=== PATIENT | female | born 1990 | race Two or more races ===

== ENCOUNTER 2019-05-10 00:06 | Emergency (ER) | payer OTHER ==
[~2019-05-10] VITALS: Ht 157.5 cm; Wt 95.3 kg
== END 2019-05-10 03:47 | disposition home or self-care (01) ==
LOC: ER 00:06
DX: J06.9 Acute upper respiratory infection, unspecified (principal)

== ENCOUNTER 2021-04-02 21:41 | Emergency (ER) | payer OTHER ==
[~2021-04-02] VITALS: Ht 157.5 cm; Wt 88.0 kg
[2021-04-03] MEDS ORDERED: ACETAMINOPHEN650 M2 PO (01:26)
== END 2021-04-03 01:37 | disposition home or self-care (01) ==
LOC: ER 21:41
DX: O46.8X1 Other antepartum hemorrhage, first trimester (principal); Z3A.01 Less than 8 weeks gestation of pregnancy

== ENCOUNTER → 2021-04-29 | Emergency (ER) | payer OTHER ==
[~2021-04-29] MED LIST: ACETAMINOPHEN650 M2 PO
== END | disposition left against medical advice (07) ==
LOC: ER 17:40
DX: Z53.21 Procedure and treatment not carried out due to patient leaving prior to being seen by health care provider (principal)

== ENCOUNTER 2021-07-26 07:43 | Outpatient (CLI) | payer OTHER ==
[2021-07-26] MEDS ORDERED: PRENATAL CAPLE1 EAC1 (08:48)
[2021-07-26] MEDS ORDERED: LEVOTHYROXINE13 MCG (08:48)
== END 2021-07-27 09:36 | disposition home or self-care (01) ==
LOC: OBS/DEL 07:43
PROVIDERS: ATTEND Obstetrics & Gynecology
DX: O99.891 Other specified diseases and conditions complicating pregnancy (principal); Z3A.21 21 weeks gestation of pregnancy; R10.2 Pelvic and perineal pain; Z20.822 Contact with and (suspected) exposure to COVID-19

== ENCOUNTER 2021-11-29 09:57 | Inpatient (IN) | payer OTHER ==
[~2021-11-29] VITALS: Ht 157.5 cm; Wt 114.3 kg
[~2021-11-29 09:57] MED LIST changes: +LEVOTHYROXINE13 MCG; +PRENATAL CAPLE1 EAC1
[2021-11-29] MEDS ORDERED: FOLIC ACID20 MG (11:07)
[2021-11-30] MEDS ORDERED: SYNTHROID50 MCG (08:31)
== END 2021-12-02 13:55 | disposition home or self-care (01) | DRG 807 ==
LOC: LDR 09:57 → OB/GYN 11-30 13:32
PROVIDERS: ADMIT Obstetrics & Gynecology; ATTEND Obstetrics & Gynecology
PROC: 4A1HXCZ Monitoring of Products of Conception, Cardiac Rate, External Approach (ICD-10-PCS; 2021-11-29)
PROC: 10E0XZZ Delivery of Products of Conception, External Approach (ICD-10-PCS; principal; 2021-11-30)
PROC: 0KQM0ZZ Repair Perineum Muscle, Open Approach (ICD-10-PCS; 2021-11-30)
DX: O70.1 Second degree perineal laceration during delivery (principal); Z37.0 Single live birth; Z3A.39 39 weeks gestation of pregnancy; Z20.822 Contact with and (suspected) exposure to COVID-19

== ENCOUNTER 2023-02-17 15:44 | Emergency (ER) | payer OTHER ==
[~2023-02-17] VITALS: Ht 167.6 cm; Wt 110.2 kg
[~2023-02-17 15:44] MED LIST changes: +FOLIC ACID20 MG; +SYNTHROID50 MCG
[2023-02-17 18:45] LABS: PH,URINE 5.5 (5.0-8.0); URINE APPEARANCE Turbid; URINE BILIRRUBIN Negative (NEGATIVE); URINE BLOOD Negative; URINE COLOR Yellow; URINE GLUCOSE Negative (NEGATIVE); URINE LEUKOCYTE Moderate; URINE NITRATE Negative; URINE PROTEIN Trace (NEGATIVE)
[2023-02-17 18:50] LABS: URINE EPITHELIAL CELLS 69.5 uL (0.0-38.8); URINE RBC 39.5 uL (0.0-20.8); URINE WBC 338.4 uL (0.0-23.2)
[2023-02-17 18:59] LABS: HEMATOCRIT 44.3 % (36.0-45.00); HEMOGLOBIN 14.6 g/dL (12.0-15.00); MEAN CELL VOLUME 87.8 fL (80.00-100.00); PLATELET COUNT 272 K/uL (150-450); RED BLOOD COUNT 5.04 M/uL (4.00-6.00); RED CELL DISTRIBUTION WIDTH 14.6 % (11.5-14.5)
[2023-02-17 19:18] LABS: ALBUMIN 3.9 gm/dL (3.4-5.0); BILIRUBIN TOTAL 0.44 mg/dL (0.3-1.2); CALCIUM 9.5 mg/dL (8.5-10.1); CREATININE SERUM 1.01 mg/dL (0.55-1.02); GFR 63.52; GLOBULINA 4.8 G/DL (2.4-3.5); POTASSIUM 4.06 mEq/L (3.5-5.1); TOTAL PROTEIN 8.7 gm/dL (6.4-8.2); TSH 2.91 uIU/mL (0.358-3.74)
[2023-02-17 19:50] LABS: URINE BACTERIA > 9821.5 uL (0.0-1933)
== END 2023-02-17 20:23 | disposition home or self-care (01) ==
LOC: ER 15:44
PROVIDERS: General Practice
DX: N39.0 Urinary tract infection, site not specified (principal); Z20.822 Contact with and (suspected) exposure to COVID-19

== ENCOUNTER → 2023-02-19 | Emergency (ER) | payer OTHER ==
[~2023-02-19] VITALS: Ht 167.6 cm; Wt 110.2 kg
[2023-02-19 17:34] LABS: HEMATOCRIT 41.9 % (36.0-45.00); HEMOGLOBIN 14.3 g/dL (12.0-15.00); MEAN CELL VOLUME 86.5 fL (80.00-100.00); MEAN CORPUSCULAR HEMOGLOBIN 29.4 pg (27.00-32.0); MEAN CORPUSCULAR HGB CONC 34.1 g/dl (32.0-36.0); PLATELET COUNT 268 K/uL (150-450); RED BLOOD COUNT 4.85 M/uL (4.00-6.00); RED CELL DISTRIBUTION WIDTH 14.7 % (11.5-14.5)
[2023-02-19 17:59] LABS: INR 1.01; PARTIAL THROMBOPLASTIN TIME 32.5 SECONDS (22.0-34.0); PROTHROMBIN TIME 10.6 SECONDS (9.0-11.5)
[2023-02-19 18:04] LABS: BILIRUBIN TOTAL 0.26 mg/dL (0.3-1.2); CALCIUM 9.4 mg/dL (8.5-10.1); CREATININE SERUM 0.85 mg/dL (0.55-1.02); GFR 77.51; GLOBULINA 4.7 G/DL (2.4-3.5); POTASSIUM 3.64 mEq/L (3.5-5.1); TOTAL PROTEIN 8.7 gm/dL (6.4-8.2)
== END | disposition home or self-care (01) ==
LOC: ER 15:29
PROVIDERS: General Practice
DX: T88.7XXA Unspecified adverse effect of drug or medicament, initial encounter (principal); I10 Essential (primary) hypertension; Z20.822 Contact with and (suspected) exposure to COVID-19
CPT/HCPCS: 70544